=== PATIENT | male | born 1985 ===

== ENCOUNTER 2020-08-10 20:54 | Emergency (ER) | payer SELFPAY ==
[~2020-08-10] VITALS: Ht 182.9 cm; Wt 79.5 kg
[2020-08-10 20:59] VITALS: BP 114/71
== END 2020-08-10 21:22 | disposition left against medical advice (07) ==
LOC: EMS 20:56
DX: U07.1 COVID-19 (principal); R19.7 Diarrhea, unspecified
CPT/HCPCS: Z7502